=== PATIENT | male | born 1980 | race Caucasian/White ===

== ENCOUNTER 2023-06-20 07:12 | Day surgery (SDC) | payer BC ==
[~2023-06-20] VITALS: Ht 180.3 cm; Wt 116.1 kg
[~2023-06-20 07:12] MED LIST: CEPHALEXIN500 M1 PO; MOTRIN 200200 MG/TAB PO; MOTRIN 800800 MG/TAB PO; ULTRAM 50MG TAB50 MG PO
[2023-06-20 08:35] VITALS: BP 113/73; PULSE 68; TEMP 97.2
[2023-06-20 08:50] VITALS: BP 117/74; PULSE 76
[2023-06-20 09:05] VITALS: BP 120/74; PULSE 68
--- NOTE | 2023-06-20 09:15 | NUR ---
0835 RETURNS TO ROOM 7 PER CART. AWAKE, ALERT, RESP UNLABORED. DENIES ABD/CHEST PAIN OR DYSPHAGIA. VITAL SIGNS OBTAINED. CALL LIGHT AT SIDE. IN ROOM 0845 DISCHARGE INSTRUCTIONS REVIEWED. PATIENT VERBALIZES UNDERSTANDING. COPY PROVIDED IN DISCHARGE FOLDER 0900 TOLERATES PO JUICE WITHOUT NAUSEA. SWALLOWS WITHOUT DIFFICULTY 0908 DR. HANKINS HERE TO VISIT WITH PATIENT 0915 DRESSES SELF
[2023-06-20 11:27] VITALS: BP 121/76; PULSE 70; TEMP 97.2
--- NOTE | 2023-06-20 11:29 | NUR ---
0707 Pt ambulatory to bay 7 w/ steady gait, breathing even and unlabored. Pt is alert and oriented, accompanied by his . Consents reviewed with and signed by pt. IV established. LR infusing via gravity at KVO. Call light in reach. Warm blanket provided.
[2023-07-03] MEDS ORDERED: MOTRIN 200200 MG/TAB PO (10:53)
== END 2023-06-20 09:19 | disposition home or self-care (01) ==
LOC: SDCO 07:12
DX: K29.50 Unspecified chronic gastritis without bleeding (principal); K29.80 Duodenitis without bleeding; K21.00 Gastro-esophageal reflux disease with esophagitis, without bleeding; G47.33 Obstructive sleep apnea (adult) (pediatric); Z98.890 Other specified postprocedural states
CPT/HCPCS: J2704; J7120

== ENCOUNTER 2023-07-03 10:18 | Day surgery (SDC) | payer BC ==
[~2023-07-03] VITALS: Ht 180.3 cm; Wt 116.8 kg
[~2023-07-03 10:18] MED LIST changes: +Ketorolac 30 MG/ML VIAL ONE; +LR 1,000 ML IV SCH; +Lidocaine PF 2% (20 MG/ML) 5 ML VIAL ONE; +NS 10 ML IV ONE; +Ondansetron 4 MG/2 ML VIAL ONE; +Rocuronium 50 MG/5 ML Multi-Dose VIAL ONE; +dexAMETHasone 10 MG/ML VIAL ONE; +fentaNYL 50 MCG/ML 2 ML VIAL ONE
[2023-07-03 10:56] VITALS: BP 114/82; PULSE 78; TEMP 97.8
[2023-07-03 11:16] LABS: HEMATOCRIT 42.8 % (42.0-52.0); HEMOGLOBIN 14.7 g/dl (13.5-18.0); MEAN CELL VOLUME 90 fl (80.0-100.0); MEAN CORPUSCULAR HEMOGLOBIN 31 pg (27-31); MEAN CORPUSCULAR HGB CONC 34 g/dl (33.0-37.0); MEAN PLATELET VOLUME 8.5 fl (7.4-10.4); PLATELET COUNT 325 K/mm3 (130-400); RED BLOOD COUNT 4.77 M/mm3 (4.20-5.60); REDCELL DISTRIBUTION WIDTH-CV 13.2 % (11.5-14.5)
--- NOTE | 2023-07-03 11:22 | NUR ---
PATIENT C/O OF ABDOMINAL PAINS AFTER HAVING ICG. UP TO BATHROOM AND HAS DIARRHEA STOOLS. STATES THAT HE HAS BEEN HAVING LOOSE STOOLS. ABDOMINAL CRAMPING IS LESS. HOT BLANKET ON ABDOMEN AFTER RETURNING TO ROOM. WILL CONTINUE TO MONITOR.
[2023-07-03] MEDS ORDERED: Indocyanine Green 12.5 MG in Water For Injection,Sterile 2.5 ML IV SCH (11:30)
[2023-07-03 11:38] LABS: ALBUMIN 3.8 gm/dL (3.5-5.0); BILIRUBIN,TOTAL 0.5 mg/dL (0.2-1.2); CALCIUM 9.5 mg/dL (8.4-10.2); CREATININE, serum 0.87 mg/dL (0.72-1.25); POTASSIUM 3.9 mmol/L (3.5-4.5); TOTAL PROTEIN 7.1 gm/dL (6.2-8.1)
[2023-07-03] MEDS ORDERED: hydrALAZINE 20 MG/ML 1 ML VIAL IV PRN (12:15)
[2023-07-03] MEDS ORDERED: Morphine 4 MG/ML VIAL IV PRN ×2 (12:15→14:15)
[2023-07-03] MEDS ORDERED: Ondansetron 4 MG/2 ML VIAL IV PRN ×2 (12:15→14:15)
[2023-07-03] MEDS ORDERED: HYDROmorphone 2 MG/1 ML VIAL IV PRN (12:15)
[2023-07-03] MEDS ORDERED: droPERidol 2.5 MG/ML 2 ML VIAL IV PRN (12:15)
[2023-07-03] MEDS ORDERED: fentaNYL 50 MCG/ML 2 ML VIAL IV PRN (12:15)
[2023-07-03] MEDS ORDERED: Topical Skin Adhesive 1 EACH (1 ML) TOP ONE (13:15)
[2023-07-03] MEDS ORDERED: LR 1,000 ML IV ONE (13:44)
[2023-07-03] MEDS ORDERED: ZOFRAN ODT4 MG PO (14:03)
[2023-07-03] MEDS ORDERED: MOTRIN 600600 MG/TAB PO (14:03)
[2023-07-03] MEDS ORDERED: PERCOCET 325 MG1 TA2 PO (14:03)
[2023-07-03] MEDS ORDERED: Promethazine 12.5 MG in NS 50 ML IV PRN (14:15)
[2023-07-03] MEDS ORDERED: oxyCODONE/Acetaminophen 5-325 MG TAB PO PRN (14:15)
[2023-07-03] MEDS ORDERED: Ibuprofen 600 MG TAB PO PRN (14:15)
[2023-07-03] MEDS ORDERED: Acetaminophen 325 MG TAB PO PRN (14:15)
[2023-07-03] MEDS ORDERED: hydrALAZINE 20 MG/ML 1 ML VIAL IV ONE ×2 (14:30→14:50)
[2023-07-03] MEDS ORDERED: fentaNYL 50 MCG/ML 2 ML VIAL IV ONE (14:35)
[2023-07-03] MEDS ORDERED: Morphine 4 MG/ML VIAL IV ONE ×2 (14:45)
[2023-07-03 15:05] VITALS: BP 137/85; PULSE 72
--- NOTE | 2023-07-03 15:05 | NUR ---
PATIENT RETURNS TO ROOM 8 PER CART FROM PACU ACCOMPANIED BY BRAIN RN AND IS AWAKE AND ALERT. TROCHAR SITES ON ABDOMEN X5 WITH WOUND EDGES WELL APPROXIMATED. NO DRAINAGE NOTED. ABDOMEN SOFT AND ROUNDED. IVF INUSING AND SITE IS FREE OF REDNESS. C/O OF RIGHT SHOULDER PAIN AND BACK DISCOMFORT. REQUESTS TO GET UP AND WALK. IV TO INT AND ASSISTED UP TO AMBULATE IN THE HALLWAY. GAIT STEADY. TO BATHROOM AND VOIDS LARGE AMOUNTS OF URINE.
[2023-07-03 15:20] VITALS: BP 154/93; PULSE 75
--- NOTE | 2023-07-03 15:20 | NUR ---
SIPPING ON GRAPE JUICE. STATES HE IS HAVING SOME INCISIONAL SORENESS. TOLERATES LIQUIDS.
--- NOTE | 2023-07-03 15:21 | NUR ---
RATES PAIN AT 4/10. MEDICATED WITH PERCOCET 5MG ONE TAB. PATIENT IS DRESSING SELF AND STATES HE FEELS WELL ENOUGH TO GO HOME. SPOUSE IN ROOM.
[2023-07-03 15:35] VITALS: BP 161/91; PULSE 73
--- NOTE | 2023-07-03 15:35 | NUR ---
INT DISCONTINUED AND SITE IS FREE OF REDNESS. PATIENT IS DRESSED. DENIES NAUSEA.
--- NOTE | 2023-07-03 15:40 | NUR ---
DISCHARGE INSTRUCTIONS GIVEN AND PATIENT VOICES UNDERSTANDING OF THESE. INCISIONAL SITES REMAIN DRY AND WITHOUT DRAINAGE.
--- NOTE | 2023-07-03 15:42 | NUR ---
PATIENT ASSISTED INTO WHEELCHAIR AND TOLERATES ACTIVITY WELL. INSTRUCTED THAT HE MAY BEGIN MOTRIN AT 2000 DUE TO HAVING IV TORADOL IN THE OR. INSTRUCTED TO ALWAYS TAKE PAIN MEDICATION WITH FOOD OR MILK TO AVOID NAUSEA. TAKEN TO VEHICLE PER WHEELCHAIR AND ASSISTED INTO CAR WITH INSTRUCTIONS IN HAND.
[2023-07-03 20:18] VITALS: BP 154/85; PULSE 72; TEMP 97.6
== END 2023-07-03 15:42 | disposition home or self-care (01) ==
LOC: SDCO 10:18
PROVIDERS: Surgery
DX: K80.64 Calculus of gallbladder and bile duct with chronic cholecystitis without obstruction (principal); K21.9 Gastro-esophageal reflux disease without esophagitis; G47.33 Obstructive sleep apnea (adult) (pediatric); F17.210 Nicotine dependence, cigarettes, uncomplicated
CPT/HCPCS: J0360; J0690; J1100; J1885; J2270; J2405; J2704; J3010; J7120

== ENCOUNTER → 2023-09-03 | Outpatient (CLI) | payer BC ==
[~2023-09-03] MED LIST changes: -Ketorolac 30 MG/ML VIAL ONE; -LR 1,000 ML IV SCH; -Lidocaine PF 2% (20 MG/ML) 5 ML VIAL ONE; +MOTRIN 600600 MG/TAB PO; -NS 10 ML IV ONE; -Ondansetron 4 MG/2 ML VIAL ONE; +PERCOCET 325 MG1 TA2 PO; -Rocuronium 50 MG/5 ML Multi-Dose VIAL ONE; +ZOFRAN ODT4 MG PO; -dexAMETHasone 10 MG/ML VIAL ONE; -fentaNYL 50 MCG/ML 2 ML VIAL ONE
== END ==
LOC: MHCPAIN 15:01
DX: M47.812 Spondylosis without myelopathy or radiculopathy, cervical region (principal); M48.02 Spinal stenosis, cervical region
CPT/HCPCS: G0463

== ENCOUNTER 2023-09-05 13:30 | Outpatient (RCR) | payer BC | END 2023-09-14 | disposition home or self-care (01) | LOC: WSPT | DX: M54.12 Radiculopathy, cervical region (principal) ==

== ENCOUNTER → 2023-09-25 | Outpatient (CLI) | payer BC ==
[~2023-09-25] MED LIST changes: +Atropine 1 MG/10 ML SYRINGE IV ONE; +Glycopyrrolate 0.2 MG/ML 1 ML VIAL ONE; +Iohexol 300 - 10 ML VIAL ONE; +Lidocaine PF 2% (20 MG/ML) 2 ML VIAL ONE; +ePHEDrine 50 MG/10 ML VIAL IV ONE
== END ==
LOC: MHCPAIN 07:36
DX: M54.12 Radiculopathy, cervical region (principal)
CPT/HCPCS: J0461; J1100; Q9967

== ENCOUNTER 2024-05-07 06:53 | Day surgery (SDC) | payer BC ==
[~2024-05-07] VITALS: Ht 180.3 cm; Wt 122.7 kg
[~2024-05-07 06:53] MED LIST changes: -Atropine 1 MG/10 ML SYRINGE IV ONE; -Glycopyrrolate 0.2 MG/ML 1 ML VIAL ONE; -Iohexol 300 - 10 ML VIAL ONE; +LR 1,000 ML IV SCH; -Lidocaine PF 2% (20 MG/ML) 2 ML VIAL ONE; +Ondansetron 4 MG/2 ML VIAL IV PRN; -ePHEDrine 50 MG/10 ML VIAL IV ONE
[2024-05-07] MEDS ORDERED: NEURONTIN300 MG/CAP PO (07:10)
[2024-05-07 07:42] VITALS: BP 143/88; PULSE 72; TEMP 97.6
--- NOTE | 2024-05-07 07:44 | NUR ---
PATIENT WAS ADMITTED TO [facility] AMBULATORY ACCOMPAINED BY SPOUSE. ORIENTED TO ROOM. CALL LIGHT IN REACH. IVF INFUSING AND READIED FOR EGD.
[2024-05-07] MEDS ORDERED: Lidocaine PF 2% (20 MG/ML) 5 ML VIAL ONE (08:09)
[2024-05-07 08:45] VITALS: BP 98/69; PULSE 68; TEMP 97.3
[2024-05-07 09:00] VITALS: BP 119/75; PULSE 64
[2024-05-07 09:15] VITALS: BP 108/69; PULSE 68
--- NOTE | 2024-05-07 09:28 | NUR ---
0845 RETURNS TO ROOM 3 PER CART. AWAKE, ALERT. RESP UNLABORED. AMBULATES TO RECLINER WITH STANDBY ASSIST. DENIES NAUSEA, ABD/CHEST PAIN OR DYSPHAGIA. VITAL SIGNS OBTAINED. CALL LIGHT AT SIDE. IN ROOM 0900 TOLERATES PO JUICE WITHOUT NAUSEA. SWALLOWS WITHOUT DIFFICULTY 0910 DISCHARGE INSTRUCTIONS REVIEWED. PATIENT VERBALIZES UNDERSTANDING. COPY PROVIDED IN DISCHARGE FOLDER 0915 DR. HANKINS HERE TO VISIT WITH PATIENT 0920 DRESSES SELF
== END 2024-05-07 09:28 | disposition home or self-care (01) ==
LOC: SDCO 06:53
DX: K25.9 Gastric ulcer, unspecified as acute or chronic, without hemorrhage or perforation (principal); K20.90 Esophagitis, unspecified without bleeding; G47.33 Obstructive sleep apnea (adult) (pediatric); Q39.8 Other congenital malformations of esophagus; M48.02 Spinal stenosis, cervical region; F17.210 Nicotine dependence, cigarettes, uncomplicated; Z98.890 Other specified postprocedural states; Z90.49 Acquired absence of other specified parts of digestive tract
CPT/HCPCS: J2704; J7120